=== PATIENT | female | born 1970 ===

== ENCOUNTER 2020-04-27 17:12 | Emergency (ER) | payer OTHER ==
[~2020-04-27] VITALS: Ht 160 cm; Wt 90.7 kg
== END 2020-04-27 19:09 | disposition home or self-care (01) ==
LOC: ER 17:12
DX: S80.11XA Contusion of right lower leg, initial encounter (principal); M25.562 Pain in left knee; Z23 Encounter for immunization; W22.8XXA Striking against or struck by other objects, initial encounter
CPT/HCPCS: 73562-LT; 90471; 90714; 99283-25